=== PATIENT | male | born 1990 | race Caucasian/White ===

== ENCOUNTER 2017-03-19 13:49 | Emergency (ER) | payer OTHER ==
[2017-03-19 14:05] VITALS: O2SAT 97
[2017-03-19] MEDS ORDERED: Zofran 4 MG/2 ML VIAL IV ONE (14:42)
[2017-03-19] MEDS ORDERED: Sodium Chloride 0.9% 1000 ML 1,000 ML IV STA (14:42)
--- NOTE | 2017-03-19 14:42 | ERPHSYRPT ---
- History of Present Illness Time Seen by Provider: 03/19/17 14:37 Historian: patient Exam Limitations: no limitations Patient Subjective Stated Complaint: PT states "My stomach started to hurt last night and I cannot keep anything down. Every time I eat or drink, I have belly pain and I vomit." Triage Nursing Assessment: PT alert and oriented X 3, skin pwd. PT ambulates with an upright steady gait, able to speak in clear full sentences. Physician History: The patient is a 27-year-old male complaining that he started vomiting and having abdominal pain 4 days ago. The vomiting had stopped until this morning when he had some more food to eat. Abdominal pain has been located in different areas of his abdomen. He denies fever or chills. He denies diarrhea. He states he consumed a small amount of Pepto-Bismol last week and has continued to have black tarry stools ever since taking the Pepto-Bismol. The patient states that his past medical history is significant for a bleeding ulcer, ADD, 2 MIs. He did not receive an influenza vaccination this year. Timing/Duration: day(s) (4) Activities at Onset: none Quality: aching Abdominal Pain Onset Location: generalized abdomen Pain Radiation: no radiation Severity of Pain-Max: mild Severity of Pain-Current: mild Modifying Factors: Improves With: nothing Associated Symptoms: nausea, vomiting, No diarrhea Previous symptoms: no prior history Allergies/Adverse Reactions: amoxicillin Allergy (Verified 03/19/17 14:07) prednisone Allergy (Verified 03/19/17 14:07) Swelling red dye Allergy (Verified 03/19/17 14:07) anaphylaxis sulfamethoxazole [From Bactrim] Allergy (Verified 03/19/17 14:07) trimethoprim [From Bactrim] Allergy (Verified 03/19/17 14:07) acetaminophen [From Vicodin] Adverse Reaction (Verified 03/19/17 14:07) vicoden hydrocodone [From Vicodin] Adverse Reaction (Verified 03/19/17 14:07) vicoden ketorolac [From Toradol] Adverse Reaction (Verified 03/19/17 14:07) violent nicotine [From Nicoderm CQ] Adverse Reaction (Verified 03/19/17 14:07) panic attacks Home Medications: Meloxicam [Mobic] 15 mg PO DAILY 03/19/17 [History] Hx Tetanus, Diphtheria Vaccination/Date Given: Yes Hx Influenza Vaccination/Date Given: Yes Hx Pneumococcal Vaccination/Date Given: No Immunizations Up to Date: Yes - Review of Systems Constitutional: No Fever, No Chills Eyes: No Symptoms Ears, Nose, & Throat: No Symptoms Respiratory: No Cough, No Dyspnea Cardiac: No Chest Pain, No Edema, No Syncope Abdominal/Gastrointestinal: Abdominal Pain, Nausea, Vomiting, Melena, No Diarrhea Genitourinary Symptoms: No Dysuria Musculoskeletal: No Back Pain, No Neck Pain Skin: No Rash Neurological: No Dizziness, No Focal Weakness, No Sensory Changes Psychological: No Symptoms Endocrine: No Symptoms Hematologic/Lymphatic: No Symptoms Immunological/Allergic: No Symptoms All Other Systems: Reviewed and Negative - Past Medical History Pertinent Past Medical History: Yes Neurological History: Migraines, Stroke ENT History: No Pertinent History Cardiac History: No Pertinent History Respiratory History: No Pertinent History Endocrine Medical History: No Pertinent History GI Medical History: No Pertinent History Other Medical History: ADHD, high functioning autism, cardiac - Past Surgical History Past Surgical History: No - Social History Smoking Status: Current every day smoker How long have you smoked: years Exposure to second hand smoke: Yes Drug Use: none Patient Lives Alone: No - Nursing Vital Signs Nursing Vital Signs: Initial Vital Signs Temperature 97.9 F 03/19/17 13:57 Pulse Rate 90 03/19/17 13:57 Respiratory Rate 18 03/19/17 13:57 Blood Pressure 162/84 03/19/17 13:57 O2 Sat by Pulse Oximetry 97 03/19/17 13:57 Pain Scale Pain Intensity 3 - Physical Exam General Appearance: no apparent distress, alert Eye Exam: PERRL/EOMI, eyes nml inspection Ears, Nose, Throat Exam: normal ENT inspection, pharynx normal, moist mucous membranes Neck Exam: normal inspection, non-tender, supple, full range of motion Respiratory Exam: normal breath sounds, lungs clear, No respiratory distress Cardiovascular Exam: regular rate/rhythm, normal heart sounds Gastrointestinal/Abdomen Exam: tenderness Rectal Exam: normal exam, No hemorrhoids, No black stool Back Exam: normal inspection, normal range of motion, No CVA tenderness, No vertebral tenderness Extremity Exam: normal inspection, normal range of motion, pelvis stable Neurologic Exam: alert, oriented x 3, cooperative, normal mood/affect, nml cerebellar function, sensation nml, No motor deficits Skin Exam: normal color, warm, dry SpO2 Interpretation: normal SpO2: 97 Oxygen Delivery: Room Air - Radiology Exams Abdomen X-ray Interpretation: Teleradiologist Report, Negative (per DR Gallegos) Ordered Tests: Active Orders 24 hr Category Date Time Status IV Insertion STAT Care 03/19/17 14:42 Active KUB Stat Exams 03/19/17 14:42 Completed CBC W DIFF Stat Lab 03/19/17 14:55 Completed CMP Stat Lab 03/19/17 14:55 Completed LIPASE Stat Lab 03/19/17 14:55 Completed Lactic Acid Stat Lab 03/19/17 15:00 Completed Manual Differential NC Stat Lab 03/19/17 14:55 Completed Occult Blood,Stool Other Stat Lab 03/19/17 14:55 Completed PROTIME WITH INR Stat Lab 03/19/17 14:55 Received UA W/RFX UR CULTURE Stat Lab 03/19/17 14:55 Completed Medication Summary Discontinued Medications Generic Name Dose Route Start Last Admin Trade Name Freq PRN Reason Stop Dose Admin Sodium Chloride 1,000 mls @ 999 mls/hr 03/19/17 14:42 03/19/17 15:09 Sodium Chloride 0.9% 1000 Ml IV 03/19/17 15:42 999 mls/hr .Q1H1M STA Administration Sodium Chloride Confirm 03/19/17 15:02 Sodium Chloride 0.9% 1000 Ml Administered 03/19/17 15:03 Dose 1,000 mls @ ud .ROUTE .STK-MED ONE Ondansetron HCl 4 mg 03/19/17 14:42 03/19/17 15:09 Zofran 4 Mg/2 Ml Vial IV 03/19/17 14:43 4 mg STAT ONE Administration Ondansetron HCl Confirm 03/19/17 15:02 Zofran 4 Mg/2 Ml Vial Administered 03/19/17 15:03 Dose 4 mg .ROUTE .STK-MED ONE Lab/Rad Data: Laboratory Result Diagrams 03/19/17 14:55 03/19/17 14:55 Laboratory Results 03/19/17 03/19/17 03/19/17 Range/Units 15:00 14:55 14:55 WBC 8.9 (4.0-10.5) K/mm3 RBC 5.41 (4.1-5.6) M/mm3 Hgb 15.9 (12.5-18.0) gm/dl Hct 45.2 (42-50) % MCV 83.5 (78-100) fl MCH 29.4 (26-32) pg MCHC 35.2 (32-36) g/dl RDW 13.5 (11.5-14.0) % Plt Count 241 (150-450) K/mm3 MPV 10.8 H (6-9.5) fl Sodium (136-145) mEq/L Potassium (3.5-5.1) mEq/L Chloride (98-107) mEq/L Carbon Dioxide (21-32) mEq/L Anion Gap (5-15) MEQ/L BUN (9-20) mg/dL Creatinine (0.55-1.30) mg/dl Estimated GFR ML/MIN Glucose (70-110) MG/DL Lactic Acid 1.5 (0.4-2.0) Calcium (8.5-10.1) mg/dL Total Bilirubin (0.2-1.0) mg/dL AST (15-37) U/L ALT (12-78) U/L Alkaline Phosphatase (46-116) U/L Serum Total Protein (6.4-8.2) gm/dL Albumin (3.4-5.0) g/dL Lipase (73-393) U/L Ur Collection Type Urine Color (YELLOW) Urine Appearance (CLEAR) Urine pH (5-6) Ur Specific [place] (1.005-1.025) Urine Protein (Negative) Urine Ketones (NEGATIVE) Urine Blood (0-5) Evin/ul Urine Nitrite (NEGATIVE) Urine Bilirubin (NEGATIVE) Urine Urobilinogen (0-1) mg/dL Ur Leukocyte Esterase (NEGATIVE) Urine Culture Reflexed (NO) Urine Glucose (NEGATIVE) mg/dL Stool Occult Blood NEGATIVE (Negative) Specimen Received 03/19/17 03/19/17 Range/Units 14:55 14:55 WBC (4.0-10.5) K/mm3 RBC (4.1-5.6) M/mm3 Hgb (12.5-18.0) gm/dl Hct (42-50) % MCV (78-100) fl MCH (26-32) pg MCHC (32-36) g/dl RDW (11.5-14.0) % Plt Count (150-450) K/mm3 MPV (6-9.5) fl Sodium 140 (136-145) mEq/L Potassium 4.0 (3.5-5.1) mEq/L Chloride 105 (98-107) mEq/L Carbon Dioxide 23.8 (21-32) mEq/L Anion Gap 15.1 H (5-15) MEQ/L BUN 7 L (9-20) mg/dL Creatinine 1.01 (0.55-1.30) mg/dl Estimated GFR > 60 ML/MIN Glucose 95 (70-110) MG/DL Lactic Acid (0.4-2.0) Calcium 8.8 (8.5-10.1) mg/dL Total Bilirubin 0.90 (0.2-1.0) mg/dL AST 43 H (15-37) U/L ALT 67 (12-78) U/L Alkaline Phosphatase 44 L (46-116) U/L Serum Total Protein 7.2 (6.4-8.2) gm/dL Albumin 4.0 (3.4-5.0) g/dL Lipase 88 (73-393) U/L Ur Collection Type VOID Urine Color YELLOW (YELLOW) Urine Appearance HAZY (CLEAR) Urine pH 9.0 (5-6) Ur Specific [place] 1.005 (1.005-1.025) Urine Protein NEGATIVE (Negative) Urine Ketones NEGATIVE (NEGATIVE) Urine Blood NEGATIVE (0-5) Evin/ul Urine Nitrite NEGATIVE (NEGATIVE) Urine Bilirubin NEGATIVE (NEGATIVE) Urine Urobilinogen NORMAL (0-1) mg/dL Ur Leukocyte Esterase NEGATIVE (NEGATIVE) Urine Culture Reflexed NO (NO) Urine Glucose NEGATIVE (NEGATIVE) mg/dL Stool Occult Blood (Negative) Specimen Received 03/19/17 1450 - Progress Progress: improved Counseled pt/family regarding: lab results, diagnosis, rad results - Departure Time of Disposition: 16:13 Departure Disposition: Home Clinical Impression: Abdominal pain, Nausea & vomiting Condition: Stable Critical Care Time: No Referrals: DOCTOR,NO FAMILY [Primary Care Provider] - Additional Instructions: You have mild abdominal pain, nausea, and vomiting. You were given Zofran 4 mg and fluids by IV in the ER. Take Zofran 4 mg ODT every 6 hours as needed. Start with a liquid diet and advance as tolerated. Avoid fatty foods such as cheese burgers for 2 days. Follow-up as needed. Prescriptions: Ondansetron ODT 4 MG [Zofran Odt 4 mg] 1 tab PO Q6H PRN PRN #10 tab.rapdis PRN Reason: Nausea/Vomiting
[2017-03-19] MEDS ORDERED: Zofran 4 MG/2 ML VIAL ONE (15:02)
[2017-03-19] MEDS ORDERED: Sodium Chloride 0.9% 1000 ML 1,000 ML ONE (15:02)
[2017-03-19 15:08] LABS: Granulocyte Absolute (ANC) 5.29 (1.4-6.9); Hematocrit 45.2 % (42-50); Hemoglobin 15.9 gm/dl (12.5-18.0); Mean Cell Volume 83.5 fl (78-100); Mean Corpuscular Hemoglobin 29.4 pg (26-32); Mean Corpuscular Hgb Concent. 35.2 g/dl (32-36); Mean Platelet Volume 10.8 fl (6-9.5); Platelet Count 241 K/mm3 (150-450); Red Blood Count 5.41 M/mm3 (4.1-5.6); Red Cell Distribution Width 13.5 % (11.5-14.0); White Blood Count 8.9 K/mm3 (4.0-10.5)
--- NOTE | 2017-03-19 15:19 | XRAY ---
Indication: Abdominal pain and vomiting. Comparison: None KUB nonacute and nonobstructed. Solid organs and osseous structures unremarkable. Impression: Negative KUB.
[2017-03-19 16:08] LABS: ALKALINE PHOSPHATASE 44 U/L (46-116); ANION GAP 15.1 MEQ/L (5-15); BLOOD UREA NITROGEN 7 mg/dL (9-20); CHLORIDE 105 mEq/L (98-107); Calcium 8.8 mg/dL (8.5-10.1); Carbon Dioxide 23.8 mEq/L (21-32); Creatinine 1 1.01 mg/dl (0.55-1.30); EST GLOMERULAR FILTRATION RATE > 60 ML/MIN; Glucose 95 MG/DL (70-110); LIPASE 88 U/L (73-393); SGOT/AST 43 U/L (15-37); SGPT/ALT 67 U/L (12-78); SODIUM 140 mEq/L (136-145); Total Protein 7.2 gm/dL (6.4-8.2)
[2017-03-19 16:10] LABS: Appearance HAZY (CLEAR); Bilirubin NEGATIVE (NEGATIVE); Blood NEGATIVE Ery/ul (0-5); Glucose NEGATIVE (NEGATIVE); Ketones NEGATIVE (NEGATIVE); Leukocyte Esterase NEGATIVE (NEGATIVE); Nitrite NEGATIVE (NEGATIVE); Protein,Urine Dip NEGATIVE (Negative); Specific Gravity 1.005 (1.005-1.025); Urobilinogen NORMAL mg/dL (0-1)
[2017-03-19 16:26] VITALS: BP 120/78; PULSE 70
[2017-03-19 16:26] LABS: INR 1.03 (0.8-3.0)
[2017-03-19 17:57] LABS: Total Cells Counted 100
[2017-03-19 17:58] LABS: Basophil 2 % (0.0-1.0); Eosinophil 2 % (0.00-3.0); Lymphocytes 26 % (24-44); Monocyte 9 % (0.0-12.0); Neutrophils 61 % (36.-66.); Platelet Estimate NORMAL (NORMAL)
== END 2017-03-19 16:26 | disposition home or self-care (01) ==
LOC: ED 13:49
DX: R10.9 Unspecified abdominal pain (principal); R11.2 Nausea with vomiting, unspecified
CPT/HCPCS: 36000; 36415; 74018; 80053; 81002; 82272; 83605; 83690; 85025; 85610; 96360; 96374; 99284; J2405